=== PATIENT | female | born 1950 | race Native Hawaiian/Other Pacific Islander ===

== ENCOUNTER 2019-05-28 09:28 | Emergency (ER) | payer SELFPAY ==
[2019-05-28 09:54] VITALS: BP 189/81
--- NOTE | 2019-05-28 10:02 | ED Physician Documentation ---
Skin Rash - HISTORIAN Historian: patient, child (Son) - HPI Stated Complaint: LLE redness/swelling Chief Complaint: Lower Extremity Problem Additional Information: Patient is a non-Romansh speaking 68-year-old woman who presents to the ER with son. She c/o insect bites to lower legs- she c/o burning. There is redness, scabbing, and erythema noted to bilateral lower legs. She states that she has been outside walking. Son using translation aleida. to communicate. Onset: days ago Timing: still present Duration: worse Location: RLE, LLE Quality: burning Identified Cause?: Yes (Insect bites) When Did Symptoms Start: 05/22/19 Where: other (outside) Context: Medication Exposure: none Context: Food Exposure: none Context: Other Exposure: other (Insect bites) - ROS CONST: none CVS/RESP: none EYES/ENT: none GI/: none MS/SKIN/LYMPH: leg swelling NEURO/PSYCH: none - PAST HX Past History: diabetes Type 2, hypertension, other (GERD) Other History: none Immunizations: UTD Allergies/Adverse Reactions: Allergies Allergy/AdvReac Type Severity Reaction Status Date / Time No Known Allergies Allergy Verified 05/28/19 09:48 Home Medications: Ambulatory Orders Medication Instructions Recorded Cephalexin [Keflex] 500 mg PO Q6H #40 capsule 05/28/19 Loratadine [Claritin] 10 mg PO DAILY #30 tablet 05/28/19 Metformin HCl [Metformin ER 1,000 mg PO DAILY 05/28/19 Osmotic] Ranitidine HCl [Heartburn Relief] 150 mg PO BID 05/28/19 amLODIPine BESYLATE [Norvasc] 5 mg PO 0900 05/28/19 diphenhydrAMINE HCL [Benadryl] 25 mg PO Q6 PRN #30 tablet 05/28/19 - SOCIAL HX Smoking History: non-smoker Alcohol Use: none Drug Use: none - FAMILY HX Family History: none - VITAL SIGNS Vital Signs: Vital Signs Temp Pulse Resp BP Pulse Ox 97.1 F L 81 17 189/81 98 05/28/19 09:29 05/28/19 09:29 05/28/19 09:29 05/28/19 09:29 05/28/19 09:29 - REVIEWED ASSESSMENTS Nursing Assessment Reviewed: Yes Vitals Reviewed: Yes Skin Rash Physical Exam - EXAM General Appearance: no acute distress, alert Skin: warm,dry, lesion (scabbing, erythema, and redness to bilateral lower extremities) Location: extremities (lower legs) Character: asymmetric, vesicular, erythematous Symptoms: warmth, tenderness, swelling, other (2+ pedal pulses, brisk cap refill) Extremities: edema, legs EENT: eyes nml inspection, lips nml, pharynx nml Neck: no swelling Respiratory: breath sounds normal CVS: heart sounds nml Neuro/Psych: oriented x3, CN's nml as tested, motor nml, sensation nml, mood/affect nml Discharge Clincal Impression: Cellulitis of left anterior lower leg, Cellulitis of right anterior lower leg Referrals: Primary Doctor,No [Primary Care Provider] - 2 Days Additional Instructions: Special Instructions: You have infection of your legs from insect bites that have become infected. Take antibiotic for infection of legs (Cephalexin 500mg- take one capsule by mouth every 6 hours until gone) Take medications for itching (Claritin 10 mg daily for 30 days and Benadryl 25 mg by mouth every 6 hours as needed for itching) DO NOT SCRATCH OR PICK AT SCABS ON LEGS Keep legs elevated to decrease swelling May take Tylenol 650 mg every 4-6 hours as needed for discomfort Call PCP tomorrow and schedule appointment for follow up next week. Instructions given in Malian using CareNotes (Special instructions reviewed by Dr. Esquivel for accuracy) Comments: No sx's of DVT- patient has obvious insect bites to lower extremities that she has been scratching and picking at that have now become infected. Condition: Good Disposition: 01 HOME, SELF-CARE Decision to Admit: NO Decision Time: 10:14
== END 2019-05-28 10:10 | disposition home or self-care (01) ==
LOC: ED 09:28
DX: L03.116 Cellulitis of left lower limb (principal); L03.115 Cellulitis of right lower limb
CPT/HCPCS: 99281; 99283